=== PATIENT | female | born 1965 | race Caucasian/White ===

== ENCOUNTER → 2017-05-29 | Outpatient (CLI) | payer BC | END | disposition home or self-care (01) | LOC: C.PAPS 14:23 | PROVIDERS: ATTEND Obstetrics & Gynecology | DX: Z01.419 Encounter for gynecological examination (general) (routine) without abnormal findings (principal) ==

== ENCOUNTER → 2017-10-05 | Day surgery (SDC) | payer BC ==
[2017-09-04 10:20] VITALS: Ht 167.6 cm; Wt 57.0 kg
--- NOTE | 2017-10-02 10:29 | HISTORY & PHYSICAL EXAMINATION ---
DATE OF ADMISSION: 10/05/2017 CHIEF COMPLAINT: Endometrial mass. HISTORY OF PRESENT ILLNESS: The patient is a 52-year-old white female 2, para 2, whose last menstrual period was 09/23/2017. The patient was found to have an endometrial mass on ultrasound on 08/20/2017. It appears to be a possible polyp. Her endometrial lining measured 14.7 mm and there was an apparent mass with a vascular stalk. The ultrasound had been done as the patient had had some abnormal vaginal bleeding. Her periods have been more normal since that time. She is scheduled for hysteroscopy and D&C. Her Pap smear done on 05/29/2017 was negative. For contraception, she has a partner with a vasectomy. PAST MEDICAL HISTORY: ALLERGIES: None known. MEDICATIONS: The patient uses Retin-A. SURGERIES: She had an appendectomy in 1978 and a biopsy in 2005. ILLNESSES: She reports arthritis. She also has fibrocystic breast disease. FAMILY HISTORY: Her mother has Alzheimer's disease. She also has a history of hypertension and rheumatic heart disease. Her father had heart problems, elevated cholesterol and also rheumatic heart disease. He is . Her maternal grandmother had breast cancer. SOCIAL HISTORY: The patient has never smoked. She drinks alcohol approximately 7 drinks per week. PHYSICAL EXAMINATION: VITAL SIGNS: Height 5 feet 6 inches and weight 126 pounds. Blood pressure 124/80. HEENT: Grossly within normal limits. NECK: Supple without masses. CHEST: Her lungs are clear without wheezing. HEART: Regular rate and rhythm. No murmurs, gallops or rubs. ABDOMEN: Soft and nontender with no masses palpable. PELVIC: External genitalia normal. Vagina pink and stimulated. Cervix pink and closed with no lesions visible. Adnexa nontender with no masses palpable. Rectovaginal exam negative. EXTREMITIES: No cyanosis, clubbing or edema. IMPRESSION: A 52-year-old white female premenopausal with endometrial mass by ultrasound. PLAN: The patient is for hysteroscopy, dilation of the cervix and curettage with possible removal of polyp/lesion. The patient is aware of the risks of infection, bleeding, perforation of the uterus and the possibility of an additional surgery or treatment. She is aware of the option of no surgery, which I do not recommend. [facility]
[~2017-10-05] VITALS: Ht 167.6 cm; Wt 57.0 kg
[~2017-10-05] MED LIST: ATROPINE SULFATE 0.1 MG/ML 5ML SYR IV PRN; DEXAMETHASONE SOD INJ 4 MG/ML VIAL ONE; EpHEDrine SULFATE INJ 50 MG/ML AMP IV PRN; FENTANYL CITRATE INJ 50 MCG/1 ML 2 ML VIAL IV PRN; FENTANYL CITRATE INJ 50 MCG/1 ML 2 ML VIAL ONE; HYDROmorphone INJ 1 MG/ML SYR IV PRN; IBUPROFEN 600 MG TAB PO PRN; KETOROLAC TROMETHAMINE 30 MG/ML VIAL ONE; LACTATED RINGER'S 1000ML 1,000 ML IV SCH; LIDOCAINE HCL 2% 2 ML VIAL (20MG/ML) ONE; MIDAZOLAM HCL 1 MG/ML 2ML VIAL ONE; ONDANSETRON INJ 2 MG/ML 2 ML VIAL IV PRN; ONDANSETRON INJ 2 MG/ML 2 ML VIAL ONE; PROMETHAZINE HCL INJ 12.5 MG in SODIUM CHLORIDE 0.9% 50ML 50 ML IV PRN; PROPOFOL IV EMULSION 10 MG/ML 20 ML VIAL IV ONE; SODIUM CHLORIDE 0.9% 1000ML 1,000 ML IV SCH
--- NOTE | 2017-10-05 06:59 | History & Physical Bridge - SC ---
H&P Re-Evaluation Bridge Note: I have examined the patient, reviewed the History & Physical and in the interval since the performance of the History & Physical I have noted the following changes of clinical significance: No changes noted
--- NOTE | 2017-10-05 07:43 | [facility] Post Operative Brief Note ---
Immediate Operative Summary Operative Date Oct 05, 2017. Pre-Operative Diagnosis Endometrial mass Post-Operative Diagnosis Endometrial mass Procedure(s) Performed Dilatation And Curettage, Hysteroscopy, Polypectomy Surgeon Dr. Abdul Train Clerk Surgeon(s) None Estimated Blood Loss 25 mL Findings See dictated note. Specimens A: Endocervical curettings B: Endometrial curettings C: Endometrial polyp Complication(s) None Disposition Recovery Room / PACU
--- NOTE | 2017-10-05 07:54 | Discharge Instructions-SurgCtr ---
Discharge Instructions Date of Service Oct 05, 2017. Visit Reason for Visit: Endometrial mass Discharge Discharge Diagnosis / Problem: S/P Hysteroscopy, D&C, polypectomy Discharge Goals Goal(s): Diagnostic testing, Therapeutic intervention Activity Recommendations Activity Limitations: per Instructions/Follow-up section Anesthesia . Post Anesthesia Instructions: If you have had General Anesthesia or IV Sedation: * Do not drive today. * Resume driving when surgeon permits. * Do not make important decisions or sign legal documents today. * Call surgeon for: 1. Temperature elevations greater than 101 degrees F. 2. Uncontrollable pain. 3. Excessive bleeding. 4. Persistent nausea and vomiting. 5. Medication intolerance (nausea, vomiting or rash). * For nausea and vomiting use only clear liquids such as: tea, soda, bouillon until nausea subsides, then gradually increase diet as tolerated. * If you have any concerns or questions, call your surgeon's office. If physician is unavailable and it is an emergency, call 911 or go to the nearest emergency room. . Instructions / Follow-Up Instructions / Follow-Up ACTIVITY RECOMMENDATIONS: * Avoid tampons, douching, hot tubs, pools, and intercourse until bleeding has stopped. * May shower as usual. * No strenuous activity for 24-48 hours. After 24-48 hours, you may do anything you feel like doing (driving and sports are okay). SPECIAL CARE INSTRUCTIONS: Special Diet: * Mild nausea may occur in the immediate post-operative period. * Take clear liquids such as tea, cola or bouillon until all nausea has subsided; you may then resume your normal diet. Special Care: * Light bleeding and vaginal spotting can last from a few days to 3-4 weeks. Call your doctor if bleeding becomes heavier than the heaviest part of your period. * Check your temperature twice a day for one week. If it goes above 100.4 degrees Fahrenheit (38.0 Celsius), notify your doctor. Call if you develop foul smelling discharge or have persistent severe cramping. * Call your doctor's office for an appointment for 2-4 weeks after your surgery. [phone] FOLLOW-UP VISIT: Call your doctor's office for an appointment for 2-4 weeks after your surgery. Diet Recommendations Home Diet: resume previous diet Procedures Procedures Performed: Dilatation And Curettage, Hysteroscopy, Polypectomy Pending Studies Studies pending at discharge: yes List of pending studies: The office will call you with the results of the pathology report. We should have those results within a week. Medical Emergencies . Who to Call and When: Medical Emergencies: If at any time you feel your situation is an emergency, please call 911 immediately. . Non-Emergent Contact Non-Emergency issues call your: Injection Molding Machine Tender Call Non-Emergent contact if: temperature is above 100.5, your pain is worsening . . "Provider Documentation" section prepared by Michell Abdul. .
--- NOTE | 2017-10-05 07:58 | OPERATIVE REPORT ---
DATE OF OPERATION: 10/05/2017 PREOPERATIVE DIAGNOSIS: Endometrial mass. POSTOPERATIVE DIAGNOSIS: Same with pathology pending. PROCEDURE: Hysteroscopy, uterine D&C and polypectomy. ANESTHESIA: General. ANESTHESIOLOGIST: Dr. Mcallister. DESCRIPTION OF THE PROCEDURE: The patient was taken to the operating room where general anesthesia was administered. After an adequate level was obtained, she was placed in dorsal lithotomy position. Vulva, vagina, and cervix were prepped with Betadine solution. The patient was draped. Her bladder was drained with a straight catheter. Weighted speculum was then placed in the posterior fornix of the vagina. The anterior lip of the cervix was grasped with an Allis clamp. Endocervical curettings were then obtained. A small endocervical polyp was noted at that time. The uterus sounded to 8 cm. The cervix was then dilated enough to admit the hysteroscope. Hysteroscope was used to visualize the endometrial cavity and there was a smooth benign appearing polypoid mass in the cavity. Photo was taken. The hysteroscope was removed. Polyp forceps were used and several pieces of polypoid tissue removed. The endometrial cavity was then curetted with a smooth sharp curette. Some additional polypoid tissue was obtained and this was sent to pathology with the remainder of the polyp. A separate endometrial curettings, which were moderate in amount were sent as well. After several passes were made with a smooth sharp curette, the endometrial cavity was visualized once more and removal of the entire polyp was confirmed. Hysteroscope was removed. One additional pass was made with a smooth sharp curette. At this point, the procedure was ended. ESTIMATED BLOOD LOSS: 25 mL. The patient tolerated the procedure well and was taken to the recovery room in good condition. I attest to the content of the Intraoperative Record and any orders documented therein. Any exceptions are noted below. [facility]
[2017-10-05 08:28] VITALS: TEMP 36.9
[2017-10-05 08:51] VITALS: BP 122/76; PULSE 59; O2SAT 99
--- NOTE | 2017-10-05 08:57 | Anesthesia Progress Nt - [facility] ---
Anesthesia Post Op Note Date & Time Oct 05, 2017 at 08:56 Vital Signs Pain Intensity: 0 Vital Signs Past 12 Hours Date Time Temp Pulse Resp B/P (MAP) Pulse Ox O2 Delivery O2 Flow Rate FiO2 10/05/17 08:51 59 16 122/76 (91) 99 Room Air 10/05/17 08:28 36.9 74 16 136/77 (96) 99 Room Air 10/05/17 08:20 132/74 10/05/17 08:18 73 20 100 10/05/17 08:18 76 20 10/05/17 08:15 130/69 10/05/17 08:13 37.5 75 16 130/69 100 Room Air 10/05/17 08:13 67 15 10/05/17 08:13 65 15 100 10/05/17 08:10 122/72 10/05/17 08:08 67 17 100 10/05/17 08:08 67 17 10/05/17 08:05 128/67 10/05/17 08:03 75 20 100 10/05/17 08:03 74 20 10/05/17 08:01 133/65 10/05/17 07:58 69 10 100 10/05/17 07:58 69 10 10/05/17 07:57 21 10/05/17 07:57 89 21 10/05/17 07:55 153/85 10/05/17 07:52 86 20 100 10/05/17 07:52 85 20 10/05/17 07:50 140/82 10/05/17 07:48 144/86 10/05/17 07:47 36.8 80 12 144/86 98 Diffusion Mask 6 10/05/17 06:58 36.7 84 22 156/91 (112) 100 Room Air Notes Mental Status: alert / awake / arousable, participated in evaluation Pt Amnestic to Procedure: Yes Nausea / Vomiting: adequately controlled Pain: adequately controlled Airway Patency, RR, SpO2: stable & adequate BP & HR: stable & adequate Hydration State: stable & adequate Anesthetic Complications: no major complications apparent
== END | disposition home or self-care (01) ==
LOC: X.SURG 06:46
PROVIDERS: ATTEND Obstetrics & Gynecology
DX: N84.0 Polyp of corpus uteri (principal); N84.1 Polyp of cervix uteri